=== PATIENT | female | born 1955 | race Caucasian/White ===

== ENCOUNTER 2019-08-22 12:52 | Outpatient (CLI) | payer BC, SELFPAY ==
--- NOTE | ~2019-08-22 | XR_ITS ---
EXAMINATION: 1. XR lg joint inject/asp w image 2. XR lg joint inject/asp add DATE: 08/22/2019 14:18 INDICATION: Posterior right pelvis pain. Piriformis syndrome. TECHNIQUE: A time-out was performed to verify the patient's name, date of , and procedure to b e performed. The procedure including the risks, benefits, and alternatives was discussed with the pat ient. Risks discussed included bleeding and infection. The patient understood the risks and agreed to proceed. The skin overlying the pelvis was prepped and draped in usual sterile fashion. Anesthetic was administered with 1% lidocaine subcutaneously. A 22 G needle was advanced under fluoroscopic gu idance into the right ischial bursa. Subsequently, injectate consisting of 1.5 mL 1% lidocaine and 0. 5 mL 80 mg/mL Depo-Medrol was instilled. A 22 G needle was advanced under fluoroscopic guidance into the right pyriformis muscle. Injection o f 1 mL of Omnipaque 240 confirmed position of the needle. Subsequently, injectate consisting of 1.5 mL 1% lidocaine and 0.5 mL 80 mg/mL Depo-Medrol was instilled. There were no immediate complications . Fluoroscopy exposure time was 0.1 minutes. The total number of images was 2. FINDINGS: Real-time fluoroscopy demonstrates the needle in the right ischial bursa. Fluoroscopy demon strates the needle in the right piriformis muscle. IMPRESSION: 1. Right ischial bursa injection of local anesthetic and steroid. 2. Right piriformis muscle injection of local anesthetic and steroid. Reviewed, dictated and finalized at location A. FISHER IMPRESSION: 1. Right ischial bursa injection of local anesthetic and steroid. 2. Right piriformis muscle injection of local anesthetic and steroid.
== END 2019-08-22 12:53 | disposition home or self-care (01) ==
PROVIDERS: Visit Provider Internal Medicine
DX: G57.01 Lesion of sciatic nerve, right lower limb (principal); M70.71 Other bursitis of hip, right hip
CPT/HCPCS: 20610; 77002; J1040

== ENCOUNTER 2020-06-15 10:29 | Outpatient (CLI) | payer BC, SELFPAY ==
--- NOTE | ~2020-06-15 | MM_ITS ---
EXAMINATION: MM screening alberto BI w mason HISTORY: Screening mammogram TECHNIQUE: Craniocaudal and mediolateral oblique 3-D tomosynthesis images were obtained and synthetic 2-D images were generated. CAD analysis was submitted and interpreted. COMPARISON: 11/10/2017 bilateral digital screening mammogram 10/10/2016 bilateral diagnostic digital mammogram 09/13/2016 bilateral digital screening mammogram BREAST PARENCHYMAL COMPOSITION: FINDINGS: There is a 3 mm circumscribed mass at mid depth in the outer aspect of the mid to lower lef t breast on MLO Tomosynthesis image /. An incompletely circumscribed 3.7 mm mass is suggested in the lower outer quadrant of the left breast on MLO Tomosynthesis image / Otherwise there is no evidence of suspicious mass, calcification, or architectural distortion to sug gest malignancy in either breast. There has been no other suspicious interval change. IMPRESSION: 1. Bilateral masses are suggested; 2. Bilateral diagnostic mammography and ultrasound are recommended. BI-RADS Category 0: Incomplete: Needs additional imaging evaluation. Reviewed, dictated and finalized at location A. HOOKER
== END 2020-06-15 10:30 | disposition home or self-care (01) ==
DX: Z12.31 Encounter for screening mammogram for malignant neoplasm of breast (principal); R92.8 Other abnormal and inconclusive findings on diagnostic imaging of breast
CPT/HCPCS: 77063; 77067

== ENCOUNTER → 2020-07-07 08:24 | Outpatient (CLI) | payer BC, SELFPAY ==
--- NOTE | ~2020-07-07 | MM_ITS ---
EXAMINATION: MM diagnostic mammo BI HISTORY: Bilateral masses suggested on 06/15/2020 screening mammogram TECHNIQUE: Additional 3-D tomosynthesis images of both breasts were performed and synthetic 2-D image s were generated. Bilateral rolled medial and rolled lateral craniocaudal views. CAD analysis was sub mitted and interpreted. COMPARISON: 06/15/2018, 11/10/2017bilateral digital screening mammogram examinations FINDINGS: No reproducible mass, architectural distortion, malignant calcification, skin thickening or retraction or significant new or developing density of either breast since 11/10/2017 is evident. IMPRESSION: 1. No mammographic evidence of malignancy 2. Routine annual mammographic screening is recommended. BI-RADS Category 1: Negative Reviewed, dictated and finalized at location A. ING MACHINE OPERATOR
== END ==
DX: R92.8 Other abnormal and inconclusive findings on diagnostic imaging of breast (principal)
CPT/HCPCS: 77066

== ENCOUNTER 2021-10-27 15:13 | Outpatient (CLI) | payer BC, SELFPAY ==
--- NOTE | ~2021-10-27 | MM_ITS ---
EXAMINATION: MM screening alberto BI w mason HISTORY: Screening TECHNIQUE: Craniocaudal and mediolateral oblique 3-D tomosynthesis images were obtained and synthetic 2-D images were generated. CAD analysis was submitted and interpreted. COMPARISON: Comparison to multiple prior studies sequentially, with oldest reviewed study dated 06/17. BREAST PARENCHYMAL COMPOSITION: Breast composed of scattered areas of fibroglandular density FINDINGS: There is no evidence of suspicious mass, calcification, or architectural distortion to sugg est malignancy in either breast. There has been no suspicious interval change. IMPRESSION: 1. No mammographic evidence of malignancy. 2. Recommend routine screening mammography in one year. BI-RADS Category 1: Negative Reviewed, dictated and finalized at location A.
== END 2021-10-27 15:14 | disposition home or self-care (01) ==
LOC: ANHIMG 15:15
DX: Z12.31 Encounter for screening mammogram for malignant neoplasm of breast (principal)
CPT/HCPCS: 77063; 77067

== ENCOUNTER 2022-11-03 15:48 | Outpatient (CLI) | payer BC, SELFPAY ==
--- NOTE | ~2022-11-03 | MM_ITS ---
EXAMINATION: MM screening alberto BI w mason HISTORY: Screening mammogram TECHNIQUE: Craniocaudal and mediolateral oblique 3-D tomosynthesis images were obtained and synthetic 2-D images were generated. CAD analysis was submitted and interpreted. COMPARISON: October 27, 2021 bilateral screening mammogram, July 07, 2020 bilateral diagnostic mamm ogram, June 15, 2020 bilateral screening mammogram BREAST PARENCHYMAL COMPOSITION: There are scattered areas of fibroglandular density. FINDINGS: There is no evidence of suspicious mass, calcification, or architectural distortion to sugg est malignancy in either breast. There has been no suspicious interval change. IMPRESSION: 1. No mammographic evidence of malignancy. 2. Recommend routine screening mammography in one year. BI-RADS Category 1: Negative Reviewed, dictated and finalized at location B.
== END 2022-11-03 15:49 | disposition home or self-care (01) ==
DX: Z12.31 Encounter for screening mammogram for malignant neoplasm of breast (principal)
CPT/HCPCS: 77063; 77067

== ENCOUNTER → 2023-04-11 14:43 | Outpatient (CLI) | payer BC, SELFPAY ==
--- NOTE | ~2023-04-11 | XR_ITS ---
XR cervical spine 4-5V 04/11/2023 15:13 Indication: Arthritis. Neck pain. Procedure: 5 views cervical spine Comparison: No prior studies for comparison. Findings: Straightening of cervical lordosis. There is degenerative anterolisthesis at C4-5. There is disc narrowing and endplate hypertrophy at C5-6 and C6-7. No prevertebral soft tissue swelling. [place] toid process is normal. Lung apices are normal. Impression: 1: Severe cervical spondylosis with degenerative anterolisthesis at C4-5. Reviewed, dictated and finalized at location B. Impression: 1: Severe cervical spondylosis with degenerative anterolisthesis at C4-5.
== END ==
PROVIDERS: PCP Chiropractor; Visit Provider Chiropractor
DX: M50.30 Other cervical disc degeneration, unspecified cervical region (principal); M47.892 Other spondylosis, cervical region
CPT/HCPCS: 72050

== ENCOUNTER 2023-12-04 09:02 | Outpatient (CLI) | payer BC, SELFPAY ==
--- NOTE | ~2023-12-04 | MR_ITS ---
MRI of the left shoulder Technique: Axial proton-density fat-sat images, coronal proton density fat-sat and T2 fat-sat images, and sagittal T1-weighted and T2 fat-sat images were acquired. Clinical History: Rotator cuff syndrome Findings: There is mild AC joint degenerative change, with bony productive change of the distal clavi shabana. Coracoclavicular, coracoacromial, and coracohumeral ligaments are intact. There is moderate supraspinatus and infraspinatus tendinosis. Possible minimal bursal surface fraying of the distal supraspinatus tendon anteriorly. No high-grade partial or full-thickness tear seen. Calvin bscapularis tendon is intact, with mild tendinosis. Tendon of the long head of the biceps is intact. No labral tear evident. Inferior glenohumeral ligament is intact. No effusion or degenerative change of the glenohumeral join t seen. No fluid distention of the subacromial/subdeltoid bursa. No muscle atrophy or edema. Impression: Rotator cuff tendinosis with possible minimal bursal surface fraying of the distal supraspinatus tend on. No high-grade partial or full-thickness tear seen. Mild AC joint degenerative change. Reviewed, dictated and finalized at location . Impression: Rotator cuff tendinosis with possible minimal bursal surface fraying of the dis alejandro supraspinatus tendon. No high-grade partial or full-thickness tear seen. Mild AC joint degenerative change.
== END 2023-12-04 09:03 ==
LOC: GOSHIMG 09:04
PROVIDERS: PCP Chiropractor; Visit Provider Family Medicine Sports Medicine
DX: M75.22 Bicipital tendinitis, left shoulder (principal); M19.012 Primary osteoarthritis, left shoulder; M25.812 Other specified joint disorders, left shoulder
CPT/HCPCS: 73221

== ENCOUNTER 2024-04-01 07:55 | Outpatient (CLI) | payer BC, SELFPAY ==
--- NOTE | ~2024-04-01 | MM_ITS ---
EXAMINATION: MM screening [facility] BI w mason HISTORY: Screening mammogram TECHNIQUE: Craniocaudal and mediolateral oblique 3-D tomosynthesis images were obtained and synthetic 2-D images were generated. CAD analysis was submitted and interpreted. COMPARISON: 11/03/2022, 10/27/2021, 06/15/2020 BREAST PARENCHYMAL COMPOSITION:Not Dense. There are scattered areas of fibroglandular density. FINDINGS: No suspicious mass, calcification, or architectural distortion are identified in either kadeem ast to suggest malignancy. There has been no suspicious interval change. IMPRESSION: No mammographic evidence of malignancy. Recommend routine screening mammography in one year. BI-RADS Category 1: Negative Reviewed, dictated and finalized at location .
== END 2024-04-01 07:56 | disposition home or self-care (01) ==
LOC: ANHIMG 07:58
DX: Z12.31 Encounter for screening mammogram for malignant neoplasm of breast (principal)
CPT/HCPCS: 77063; 77067

== ENCOUNTER 2025-04-04 09:47 | Outpatient (CLI) | payer BC, SELFPAY ==
--- NOTE | ~2025-04-04 | MM_ITS ---
EXAMINATION: MM screening alberto BI w mason HISTORY: Screening TECHNIQUE: Craniocaudal and mediolateral oblique 3-D tomosynthesis images were obtained and synthetic 2-D images were generated. CAD analysis was submitted and interpreted. COMPARISON: Comparison to multiple prior studies sequentially, with oldest reviewed study dated , 11/10/2017 BREAST PARENCHYMAL COMPOSITION: There are scattered areas of fibroglandular density. FINDINGS: There is no evidence of suspicious mass, calcification, or architectural distortion to suggest malignancy in either breast. IMPRESSION: 1. No mammographic evidence of malignancy. 2. Recommend routine screening mammography in one year. BI-RADS Category 1: Negative Reviewed, dictated and finalized at location B.
--- OUTSIDE RECORDS SUMMARY | 2025-04-04 09:54 | XMS_ITS | Encounter Summary ---
Author Organization [facility] Address [address] [facility] [place] [address] Care Team Providers Care Forming Machine Operator Name Role Phone Paola Valdez DO Primary Care Provider [phone] Reason for Visit * Reason Onset Date Comments MEDICATION REFILL 02/26/2024 Encounter Details Date Type Department Care Team (Late st Contact Info) Description 02/26/2024 Refill [facility] - Internal Med [address] [place] [address], [place] [address] Paola Valdez DO [address] [place] [address] [place] [address] MEDICATION REFILL Social History Tobacco Use Types Packs/Day Years Used Date Smoking Tobacco: Never Passive Smoke Exposure: Never Smokeless Tobacco: Never Alcohol Use Standard Drinks/Week Comments Yes 0 (1 standard drink = 0.6 oz pur e alcohol) 2 drink a month AUDIT-C Answer Date Recorded Q1: How often do you have a drink containing alc ohol? Monthly or less 02/09/2022 Q2: How many drinks containi ng alcohol do you have on a typical day when you are drinking? 1 or 2 02/09/2022 Q3: How often do you have si x or more drinks on one occasion? Never 02/09/2022 PHQ-2 Answer Date Recorded Patient Health Questionnaire-2 Score 0 12/12/2023 Comments No Sex and Gender Information Value Date Recorded Sex Assigned at Female 11/11/2024 11:33 AM CDT Legal Sex Female 5:21 PM MANAGER GENERATION Gender Identity Not on file Sexual Orientation Not on file documented as of this encounter Functional Status * Is person deaf or have serious hearing difficulty? Answer Date of Assessment Author No 02/09/2022 11:03 AM Destiny Pham RN * Is person blind or have serious difficulty seeing? Answer Date of Assessment Author No 02/09/2022 11:03 AM BELINDAT Destiny Overton RN * Does person have serious difficulty walking/climbing stairs? Answer Date of Assessment Author No 02/09/2022 11:03 AM BELINDAT Destiny Overton RN * Does person have difficulty dressing/bathing? Answer Date of Assessment Author No 02/09/2022 11:03 AM Destiny Pham RN * Does person have difficulty doing errands alone? Answer Date of Assessment Author No 02/09/2022 11:03 AM Destiny Pham RN documented as of this encounter Mental Status * Does person have difficulty concentrating/remembering/making decisions? Answer Entry Date Author No 02/09/2022 11:03 AM Destiny Pham RN documented in this encounter Plan of Treatment Upcoming Encounters Date Type Department Care Team (Late st Contact Info) Description 05/05/2025 8:30 AM CDT Office Visit [facility] - Internal Med [address] [place] [phone] Paola Valdez DO [address] [place] [address] OF [facility] [place] [address] 11/18/2025 1:00 PM CDT Office Visit [facility] - Dermatology [address] [place] [address] [place] [address] Ashanti Fernandez MD [address] [place], [place] [address]T [place] [address] documented as of this encounter Goals Goal Patient Goal Type Associated Problems Recent Progress Patient-Stated? Author Medication Management General On track( 025 2:32 PM CDT) No Anny Meraz RN Note: Expected end date: on-going Interventions: Take all medications as prescribed Let your doctor know right away about any changes in your medications Make sure to request a refill of your medication at least one week prior to your last dose documented as of this encounter Visit Diagnoses Diagnosis Generalized anxiety disorder documented in this encounter Care Teams Forming Machine Operator Relationship Specialty Start Date End Date Paola Valdez DO [address] [place] [address] PCP - General Internal Medicine 04/24/23 documented as of this encounter
--- OUTSIDE RECORDS SUMMARY | 2025-04-04 09:54 | XMS_ITS | Encounter Summary ---
Author Organization [facility] Address [address] [facility] [place] [address] Care Team Providers Care Electric Motor Control Assembler Name Role Phone José Miguel Paola Primary Care Provider [phone] Reason for Visit * Reason Onset Date Comments MEDICATION REFILL 05/29/2023 Encounter Details Date Type Department Care Team (Late st Contact Info) Description 05/29/2023 Refill [facility] - Internal Med [address] [facility], [facility] [place] [phone] Arnel Booth MD [address] [place] [address] MEDICATION REFILL Social History Tobacco Use Types Packs/Day Years Used Date Smoking Tobacco: Never Smokeless Tobacco: Never Alcohol Use Standard [...] Date Recorded Patient Health Questionnaire-2 Score 0 04/24/2023 Comments No Sex and Gender Information Value Date Recorded Sex Assigned at Female 11/11/2024 11:33 AM CDT Legal Sex Female 5:21 PM KICK PRESS OPERATOR Gender Identity Not on file Sexual Orientation Not on file documented as of this encounter Functional Status * Is person deaf or have serious hearing difficulty? Answer Date of Assessment Author No 02/09/2022 11:03 AM Destiny Pham RN * Is person blind or have serious difficulty seeing? Answer Date of Assessment Author No 02/09/2022 11:03 AM Destiny Pham RN * Does person have serious difficulty walking/climbing stairs? Answer Date of Assessment Author No 02/09/2022 11:03 AM Destiny Pham RN * Does person have difficulty dressing/bathing? [...] Destiny Pham RN documented in this encounter Miscellaneous Notes * Telephone Encounter - Nisa Lewis LPN - 05/30/2023 7:21 AM KICK PRESS OPERATOR Refill Request Colette Garcia Recent Visits Date Type Provider Dept 04/24/23 Office Visit Paola Valdez DO [facility] 2l 11/07/22 Office Visit Rivera Rand MD [facility] 2[facility] 07/20/22 Office Visit Rivera Rand MD [facility] 2[facility] 05/11/22 Office Visit Lolis Colbert APRN-CNP [facility] 2[facility] 01/31/22 Office Visit Rivera Rand MD [facility] 2[facility] Showing recent visits within past 540 days with a meds authorizing provider and meeting all other requirements Future Appointments No visits were found meeting these conditions. Showing future appointments within next 150 days with a meds authorizing provider and meeting all other requirements Last Refill: 01.19.23 Allergies: Allergies Allergen Reactions ??? Sulfa Drugs Rash After 7-8 days developed generalized erythematous rash on torso and thighs. No shortness of breath ??? Meloxicam Rash, Other and Skin Reactions Fixed drug eruption. A couple of days after ingestion, developed itchy red bumps. Lesions resolve and re-occur at the exact same place when taken again. No shortness of breath. Tolerates Ibuprofen / Aleeve. , Pended Medication Order: Requested Prescriptions Pending Prescriptions Disp Refills ??? LORazepam (Ativan) 0.5 MG tablet 40 tablet 0 Sig: Take 1 (one) tablet by mouth every 12 hours as needed for Anxiety or Insomnia PRESS OPERATOR documented in this encounter Plan of Treatment Upcoming Encounters Date Type Department Care Team (Late st Contact Info) Description 05/05/2025 8:30 AM CDT Office Visit [facility] - Internal Med [address] [place] [phone] Paola Valdez DO [address] [place] [address] [address] [place] [address] 11/18/2025 1:00 PM CDT Office Visit [facility] - Dermatology [address] [place] [phone] Ashanti Fernandez MD [address] [place], [place] [address] [address] documented as of this encounter Goals Goal Patient Goal Type Associated Problems Recent Progress Patient-Stated? Author Medication Management General On track( 025 2:32 PM CDT) No Anny Meraz, RN Note: Expected end date: on-going Interventions: Take all medications as prescribed Let your doctor know right away about any changes in your medications Make sure to request a refill of your medication at least one week prior to your last dose documented as of this encounter Visit Diagnoses Diagnosis Anxiety disorder, unspecified type documented in this encounter Care Teams Electric Motor Control Assembler Relationship Specialty Start Date End Date Paola Valdez DO [address] [place] [address] [address] [place] [address] PCP - General Internal Medicine 04/24/23 documented as of this encounter
--- OUTSIDE RECORDS SUMMARY | 2025-04-04 09:54 | XMS_ITS | Encounter Summary ---
Author Organization [facility] Address [address] [facility] [place] [address] Care Team Providers Care Sanitary Engineer Name Role Phone José Miguel Paola Primary Care Provider [phone] Reason for Visit * Reason Onset Date Comments MEDICATION REFILL 11/18/2023 Encounter Details Date Type Department Care Team (Late st Contact Info) Description 11/18/2023 Refill [facility] - Internal Med [address] [facility], [place] [phone] Rivera Rand MD [address] [place] [address] MEDICATION REFILL Social History Tobacco Use Types [...] AM CDT Legal Sex Female 5:21 PM SEAFOOD PREPARER Gender Identity Not on file Sexual Orientation Not on file documented as of this encounter Functional Status * Is person deaf or have serious hearing difficulty? Answer Date of Assessment Author No 02/09/2022 11:03 AM BELINDAT Destiny Overton RN * Is person blind or have [...] Overton RN * Does person have difficulty doing errands alone? Answer Date of Assessment Author No 02/09/2022 11:03 AM Destiny Pham RN documented as of this encounter Mental Status * Does person have difficulty concentrating/remembering/making decisions? Answer Entry Date Author No 02/09/2022 11:03 AM Destiny Pham RN documented in this encounter Miscellaneous Notes * Telephone Encounter - Nisa Lewis LPN - 11/20/2023 12:57 PM CDT Refill Request Colette Garcia Recent Visits Date Type Provider Dept 04/24/23 Office Visit Paola Valdez DO [facility] 2[facility] 11/07/22 Office Visit Rivera Rand MD [facility] 2l 07/20/22 Office Visit Rivera Rand MD [facility] 2l Showing recent visits within past 540 days with a meds authorizing provider and meeting all other requirements Future Appointments Date Type Provider Dept 12/18/23 Appointment Paola Valdez DO [facility] 2l Showing future appointments within next 150 days with a meds authorizing provider and meeting all other requirements Last Refill: 10.28.22 Allergies: Allergies Allergen Reactions ??? Sulfa Drugs [...] Requested Prescriptions Pending Prescriptions Disp Refills ??? sertraline (Zoloft) 50 MG tablet 90 tablet 4 Sig: Take 1 (one) tablet by mouth once daily documented in this encounter Plan of Treatment Upcoming Encounters Date Type Department Care Team (Late st Contact Info) Description 05/05/2025 8:30 AM CDT Office Visit [facility] - Internal Med [address] [place] [address], [place] [address] Paola Valdez DO [address] [place] [address] [address] [place] [address] 11/18/2025 1:00 PM CDT Office Visit [facility] - Dermatology [address] [place] [address], [place] [address] Ashanti Fernandez MD [address] [place] [address] [place] [address] documented as of this encounter Goals Goal [...] disorder documented in this encounter Care Teams Sanitary Engineer Relationship Specialty Start Date End Date Paola Valdez DO [address] [place] [address] [address] [place] [address] PCP - General Internal Medicine 04/24/23 documented as of this encounter
--- OUTSIDE RECORDS SUMMARY | 2025-04-04 09:54 | XMS_ITS | Encounter Summary ---
Author Organization [facility] Address [address] [facility] [place] [address] Care Team Providers Care Accordion Repairer Name Role Phone Abby Robledo MD Primary Care Provider Tray Atkinson MD Primary Care Provider [phone] Rivera Rand MD Unavailable Paola Valdez DO Primary Care Provider [phone] Reason for Visit * Reason Onset Date Comments MEDICATION REFILL 05/31/2018 Encounter Details Date Type Department Care Team (Late st Contact Info) Description 05/31/2018 Refill [facility] [address] [place] [address] Kasia Lima MD [address] [place], [place] [id number] MEDICATION REFILL Social History Tobacco Use Types Packs/Day Years Used Date Smoking Tobacco: Never Smokeless Tobacco: Never Alcohol Use Standard Drinks/Week Comments Yes 0 (1 standard drink = 0.6 oz pur e alcohol) 2 drink a month Comments No Sex and Gender Information Value Date Recorded Sex Assigned at Female 11/11/2024 11:33 AM CDT Legal Sex Female 5:21 PM TRANSPORT AIDE Gender Identity Not on file Sexual Orientation Not on file documented as of this encounter Miscellaneous Notes * Telephone Encounter - Abby Robledo MD - 06/01/2018 8:24 AM TRANSPORT AIDE Former patient of Dr. Lima; scheduled to see me in August. Will refill chronic medications until my visit. SPORT AIDE * Telephone Encounter - Saige Ambrosio - 05/31/2018 2:09 PM CST Refill request sent per protocol to provider ELVIS 02-05-18 NOV 08-27-17 SPORT AIDE documented in this encounter Plan of Treatment Upcoming Encounters Date Type Department Care Team (Late st Contact Info) Description 05/05/2025 8:30 AM CDT Office Visit [facility] - Internal Med [address] [place] [phone] Paola Valdez DO [address] [place] [address] OF [facility] [place] [place] [address] 11/18/2025 1:00 PM CDT Office Visit [facility] - Dermatology [address] [place] [address] [place] [phone] Ashanti Fernandez MD [address] [place], [place] [address]T [place] [phone] documented as of this encounter Visit Diagnoses Not on filedocumented in this encounter Additional Health Concerns Infection Onset Date Last Indicated Resolved Time COVID-19 Under Investigation 03/31/2021 03/31/2021 04/01/2021 10:07 PM CDT documented as of this encounter Care Teams Accordion Repairer Relationship Specialty Start Date End Date Abby Robledo MD PCP - General 02/05/18 09/26/19 Tray Atkinson MD PCP - General 09/27/19 04/23/23 Paola Valdez DO [address] OF [facility] [place] [address] PCP - General Internal Medicine 04/24/23 Rivera Rand MD Resident - PCP Internal Medicine 05/17/22 04/23/23 documented as of this encounter
--- OUTSIDE RECORDS SUMMARY | 2025-04-04 09:54 | XMS_ITS | Clinical Summary ---
Author Organization [facility] [address] [place] Address [address] [place] [address] Care Team Providers Care Shared Services Manager Name Role Phone RugbyPaola murillo Primary Care Provider JuanFreya sethjael LAO Unavailable [phone] Allergies Active Allergy Reactions Criticality Noted Date Comments Meloxicam Hives,Other (See comments),Rash High 03/01/2016 Fixed drug eruption. A couple of days after ingestion, developed itchy red bumps. Lesions resolve and re-occur at the exact same place when taken again. No shortness of breath. Tolerates Ibuprofen / Aleeve. , Fixed drug eruption. A couple of days after ingestion, developed itchy red bumps. Lesions resolve and re-occur at the exact same place when taken again. No shortness of breath. Tolerates Ibuprofen / Aleeve. , Fixed drug eruption. A couple of days after ingestion, developed itchy red bumps. Lesions resolve and re-occur at the exact same place when taken again. No shortness of breath. Tolerates Ibuprofen / Aleeve. , Sulfa (Sulfonamide Antibiotics) Rash Medium 02/14/2008 After 7-8 days developed generalized erythematous rash on torso and thighs. No shortness of breath, After 7-8 days developed generalized erythematous rash on torso and thighs. No shortness of breath Medications cholecalciferol (VITAMIN D-3) 2000 unit tabletIndicatio ns:Vitamin D Deficiency Take 1 tablet (2,000 Units total) by mouth every morning Active LORazepam (ATIVAN) 0.5 mg tablet Take 1 tablet (0.5 mg total) by mouth as needed for anxiety (sleep) 0 9 Active omeprazole (PriLOSEC) 20 mg capsuleIndicati ons:gerd Take 1 capsule (20 mg total) by mouth every morning Active lisinopriL (PRINIVIL,ZESTR IL) 10 mg tabletIndicatio ns:hypertension Take 1 tablet (10 mg total) by mouth every morning 0 Active cycloSPORINE (Restasis) 0.05 % ophthalmic emulsion Administer 1 drop into both eyes 2 (two) times a day 9 Active glucosamine-cho ndroitin 500-400 mg capsule Take 1 tablet by mouth daily Active multivit,iron,m inerals/lutein (CENTRUM SILVER ULTRA WOMEN'S ORAL) Take by mouth daily Active Active Problems Problem Noted Date Diagnosed Date Traumatic incomplete tear of left rotator cuff 1 07/23/2023 Biceps tendonitis on left 05/17/2024 Impingement syndrome of left shoulder 05/17/2024 Arthritis of left acromioclavicular joint 2023 Seborrheic dermatitis 12/17/2020 Hip abductor tendinitis, right 01/01/2020 Overview (02/07/2024): Added automatically from request for surgery [id number] Hip pain, chronic, right 01/01/2020 Chronic pain of both knees 04/10/2019 Low immunoglobulin level 04/10/2019 Primary osteoarthritis of both knees 04/10/2019 Hypogammaglobulinemia 03/22/2018 Sjogren's syndrome with keratoconjunctivitis sic ca 09/25/2017 ITA positive 03/13/2017 Rheumatoid factor positive 03/13/2017 SS-A antibody positive 03/13/2017 Essential hypertension 07/06/2015 Gastroesophageal reflux disease without esophagi tis 07/06/2015 Presbyopia 02/23/2015 History of basal cell cancer 10/11/2013 Generalized anxiety disorder 07/25/2011 Non-allergic rhinitis 07/25/2011 Resolved Problems Problem Noted Date Diagnosed Date Resolved Date Healthcare maintenance 01/01/202005/04 Other specified abnormal imm unological findings in serum 03/13/2017 05/04/2023 Immunizations Immunization Administration Dates Next Due Influenza, Quadrivalent, Hig h Dose, Preservative Free, Intrr 05/03/2022,04/27/2021 Influenza, Quadrivalent, Spl it, Preservative Free, Intramuscular 04/28/2020,04/16/2019,04/02/2018 Influenza, Trivalent, High D ose, Split, Preservative Free, Intramuscular 05/07/2024 Influenza, Trivalent, IM (MDV) 7,03/17/2015,04/02/2014,04/16 Influenza, Trivalent, Preser vative Free, Intramuscular 03/15/2016,04/21/2015 Influenza, Unspecified 04/28/2020,04/25/2017 Pfizer SARS-CoV-2 Monovalent Vaccination (12+ Yrs) PURPLE 09/19/2020,08/21/2020 Pneumococcal Polysaccharide PPV23 12/21/2020 Tdap 12/06/2018,12/29/2008 ZOSTER LIVE 04/25/2017 ZOSTER Recombinant 07/24/2019,04/16/2019 Surgical History Surgery Date Site/Laterality Comments CHOLECYSTECTOMY ESOPHAGOGASTRODUODENOSCOPY COLONOSCOPY Medical History Medical History Date Comments Malignant neoplasm of skin Cance r, skin Hypertension Anxiety Migraines Low immunoglobulin level 04/10/2019 Sjogren's syndrome GERD (gastroesophageal reflux disease) Osteoarthritis Tendinitis Motion sickness only if reading in car Basal cell carcinoma Obesity Autoimmune disease Sjogren's syndrome Family History Medical History Relation Name Comments Cancer Father Leoncio Hearing loss Father Leoncio Heart disease Father Leoncio Hypertension Father Leoncio Stroke Father Leoncio Vision loss Father Leoncio Stroke Maternal Grandmother jordi Depression Mother Ana Osteoarthritis Mother Ana Osteoporosis Mother Ana Heart disease Other 1 Family history of Heart problems; Hypertension Other 2 Family history of Hypertension; Stroke Paternal Grandmother sourav Anesthesia problems Neg Hx Relation Name Status Comments Father Leoncio Maternal Grandmother jordi Mother Ana Alive Other 1 Other 2 Paternal Grandmother sourav Social History Tobacco Use Types Packs/Day Years Used Date Smoking Tobacco: Never Smokeless Tobacco: Never Tobacco Cessation:Counseling Given: Not Answered Alcohol Use Standard Drinks/Week Comments Yes 0 (1 standard drink = 0.6 oz pur e alcohol) 4 drinks per month AUDIT-C Answer Date Recorded Q1: How often do you have a drink containing alcohol? Never 06/04/2024 Q2: How many drinks containi ng alcohol do you have on a typical day when you are drinking? Patient does not drink Q3: How often do you have si x or more drinks on one occasion? Never 06/04/2024 Personal Safety Answer Date Recorded Have you ever been in or are you currently in a harmful physical or emotional relationship or is someone making you feel afraid or unsafe? 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 Gender Identity Female 08/19/2020 9:31 AM CONDENSER TESTER Sexual Orientation Not on file Occupation Industry Job Start Date Job End Date Retired Not on file Not on file Not on file Obstetrics History Last Filed Vital Signs Vital Sign Reading Time Taken Comments Blood Pressure 130/74 10/24/2024 9:40 AM CDT Pulse 68 10/24/2024 9:40 AM CDT Temperature 36.9 C (98.4 F) 10/24/2024 9:40 AM CDT Respiratory Rate 20 10/24/2024 9:40 AM CDT Oxygen Saturation 97% 10/24/2024 9:40 AM CDT Inhaled Oxygen Concentration - - Weight 74.4 kg (164 lb) 10/24/2024 9:40 AM CDT Height 165.1 cm (5' 5) 09/24/2024 8:02 AM CDT Body Mass Index 27.29 09/24/2024 8:02 AM CDT Plan of Treatment Health Maintenance Due Date Last Done Comments Breast Cancer Screening-Mammogram 1955 Colon Cancer Screening-Colonoscopy 1955 Depression Screening 1955 Hepatitis C Screening 1955 Well Visit 65+ 2020 Pneumococcal vaccine 65+ (2 of 2 - PCV) 12/21/2021 12/21/2020 Osteoporosis Screening-Bone Density Scan 01/01/2023 01/01/2021, 01/01/2021 Covid-19 Vaccine (3 - 2024-2 6 season) 2025 09/19/2020, 08/21/2020 Influenza Vaccine (#1) 2025 4, 05/03/2022, 04/27/2021, Additional history exists Fall Risk Assessment 05/23/2025 05/23/2024 DTaP/Tdap/Td Vaccine (3 - Td or Tdap) 12/06/2028 12/06/2018, 12/29/2008 Zoster Vaccine Completed 07/24/2019, 07/2018, 04/25/2017 Hepatitis B Screening Completed 06/15/2023 , 01/05/2023, 12/01/2022 Medical Devices Implanted Type Area Exterminator Termite Device Identifier Shelf Expiration Date Model / Serial / Lot [employer] [id number] Corkscrew Ii Fiberwire 5.5mm 16.3mm 2 2 Full Thread Cocoa Suture - [id number] Implanted:Qty: 1 on 07/14/2020 by Boris aLura MD at [facility] Right: Hip [employer] 12/14/2024 [id number] / / [id number] [employer] [id number] Corkscrew Ii Fiberwire 5.5mm 16.3mm 2 2 Full Thread Cocoa Suture - [id number] Implanted:Qty: 1 on 07/14/2020 by Boris Laura MD at [facility] Right: Hip [employer] 12/14/2024 [id number] / / [id number] [employer] Regenerate Tendon Cocoa Suture 2504-1 - [id number] Implanted:Qty: 1 on 05/23/2024 by Isidro Packer MD at [facility] Left: Shoulder [employer] 02/21/2026 2504-1 / / [id number] [employer] Endoscopy Implant Medium Arthroscopic Bioinductive W/ Delivery Device 4565 - [id number] Implanted:Qty: 1 on 05/23/2024 by Isidro Packer MD at [facility] Left: Shoulder [employer] Endoscopy 03/11/2026 [id number] / / [id number] [employer] Endoscopy Cocoa Bone Arthroscopic Delivery System Sterile 4403 - [id number] Implanted:Qty: 1 on 05/23/2024 by Isidro Packer MD at [facility] Left: Shoulder [employer] Endoscopy 05/08/2026 [id number] / / [id number] Insurance MEDICARE [facility] Address: [address] [address] [place] [address] [email or web address] [facility] Advance Directives For more information, please contact: [phone] * Full Code (Latest Code Status on File) Date Activated Date Inactivated Comments 07/14/2020 12:32 PM 07/15/2020 4:25 PM Care Teams Shared Services Manager Relationship Specialty Start Date End Date Paola Valdez DO [address] [place] [address] PCP - General Internal Medicine 05/07/24 Freya Martinez PA [address] [place] [address] [address], [place] [address] Physician Policy Issue Clerk Orthopedic Surgery 05/23/24
--- OUTSIDE RECORDS SUMMARY | 2025-04-04 09:54 | XMS_ITS | Clinical Summary ---
Author Organization [facility] Address [address] [place] [address] Care Team Providers Care Inspector Subassemblies Name Role Phone José MiguelPaola Primary Care Provider [phone] Source Comments [facility],non-owned Affiliates and Associated Physician Practices is amultiple site organization consisting of ambulatory clinics and hospital sitesin [place], [place], [place] and [place]. This disclosure is being madepursuant to the Care Everywhere program and may not contain all information available regarding this patient. Last updated 18.[facility] Allergies Active Allergy Reactions Criticality Noted Date Comments Meloxicam Rash,Other,Skin Reactions Medium 03/01/2016 Fixed drug eruption. A couple of days after ingestion, developed itchy red bumps. Lesions resolve and re-occur at the exact same place when taken again. No shortness of breath. Tolerates Ibuprofen / Aleeve. , Sulfa Drugs Rash Medium 02/14/2008 After 7-8 days developed generalized erythematous rash on torso and thighs. No shortness of breath Medications * Be aware that medications may not be up to date on this document. Alwaysverify current medications with the patient. Cholecalciferol (VITAMIN D-3) 1000 UNITS Take 2 (two) capsules by mouth once daily Active glucosamine-cally droitin 500-400 MG capsule Take 1 (one) capsule by mouth once daily Active hydrocortisone (Hytone) 2.5 % cream Apply to affected area 4 times daily Active Multiple Vitamins-Mineral s (Centrum Silver 50+Women) TABS Take 1 tablet by mouth once daily 07/17/19 24 Active Ascorbic Acid (VITAMIN C GUMMIE PO) Take 2 tablets by mouth once daily 250 mg 2 gummies a day 07/17/19 24 Active melatonin 3 MG tablet Take 1 (one) tablet by mouth at bedtime 09/25/19 25 Active Additional Information Patient not taking.Reason: Patient adjusted, Reported on 02/14/2025 MAGNESIUM PO Active Multiple Vitamins-Mineral s (CENTRUM WOMEN PO) Take by mouth once daily Active ondansetron (Zofran) 4 MG tablet 05/23/20 24 Active cycloSPORINE (Restasis) 0.05 % ophthalmic suspension Instill 1 (one) drop into both eyes 2 times daily as needed Active Restasis 0.05 % ophthalmic suspension Instill 1 (one) drop into both eyes 2 times daily 5.5 mL 10/17/19 25 Active Additional Information Patient not taking.Reason: Patient adjusted, Reported on 02/14/2025 lisinopril (Prinivil; Zestril) 10 MG tabletIndication s:Essential hypertension Take 1 (one) tablet by mouth once daily Take with 5mg for total of 15mg once daily. 30 tablet 1 11/12/19 25 Active lisinopril (Prinivil; Zestril) 5 MG tabletIndication s:Essential hypertension Take 1 (one) tablet by mouth once daily Take with 10mg for total of 15mg once daily. 30 tablet 1 11/12/19 25 Active Additional Information Patient not taking.Reason: Patient adjusted, Reported on 02/14/2025 tacrolimus (Protopic) 0.1 % ointmentIndicati ons:Other eczema Apply to affected area in groin two times daily. 30 days supply. 30 g 4 11/14/19 25 Active omeprazole (PriLOSEC) 20 MG capsule Take 1 (one) capsule by mouth once daily 90 capsule 1 12/17/19 25 Active LORazepam (Ativan) 0.5 MG tabletIndication s:Anxiety disorder, unspecified type Take 0.5 (one-half) tablet to 1 (one) tablet by mouth every 12 hours as needed for Anxiety or Insomnia 30 tablet 01/29/20 25 Active sertraline (Zoloft) 25 MG tablet Take 1 (one) tablet by mouth once daily 90 tablet 1 03/10/20 25 Active sertraline (Zoloft) 25 MG tablet Take 1 (one) tablet by mouth once daily 09/25/19 025 Discontin ued(Reord er) Active Problems Problem Noted Date Diagnosed Date Seborrheic dermatitis 12/17/2020 Healthcare maintenance 01/01/2020 Hip abductor tendinitis, right 01/01/2020 Primary osteoarthritis of both knees 04/10/2019 Low immunoglobulin level 04/10/2019 Chronic pain of both knees 04/10/2019 Hypogammaglobulinemia 03/22/2018 Sjogren's syndrome with keratoconjunctivitis sic ca 09/25/2017 Other specified abnormal immunological findings in serum 03/13/2017 ITA positive 03/13/2017 Rheumatoid factor positive 03/13/2017 SS-A antibody positive 03/13/2017 Essential hypertension 07/06/2015 Gastroesophageal reflux disease without esophagi tis 07/06/2015 Presbyopia 02/23/2015 History of basal cell cancer 10/11/2013 Generalized anxiety disorder 07/25/2011 Non-allergic rhinitis 07/25/2011 Resolved Problems Problem Noted Date Diagnosed Date Resolved Date Drug reaction 03/22/2018 09/27/2019 Encounters Date Type Department Care Team Description 02/14/2025 1:15 PM CDT Office Visit [facility] - E[facility] [address] [place] [phone] Jacky Marie MD Neck pain (Primary Dx) 02/14/2025 12:38 PM CDT - 02/14/2025 11:59 PM CDT Hospital Encounter [facility] [address] [place] [address] Jacky Marie MD Discharge Disposition: Home or Self Care 02/14/2025 Travel 01/29/2025 2:00 PM CDT Office Visit [facility] [address] [place] [phone] Ashanti Fernandez MD Walker, Ronald J, MD Neck mass (Primary Dx); Neoplasm of uncertain behavior 01/29/2025 Travel 01/27/2025 12:50 PM CDT [facility] [address] [place] [phone] Ashanti Fernandez MD Neoplasm of uncertain behavior (Primary Dx); 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 (AF LURIA, FLUZONE TRIVALENT; 6MO+) (IIV3) 04/26/2017,03/17/2015,04/02/2014,2012 COVID PFIZER 12+YR 30MCG/0.3mL 07/16/2024 COVID PFIZER BIVALENT 12Y+ 30mcg/0.3ML 09/09/2022 Covid Pfizer primary monoval ent 12+ yr 0.3mL Purple cap 05/17/2021,09/19/2020,08/21/2020 FLU VACCINE TRI IIV3 SPLIT P F IM (FLUVIRIN) 03/15/2016,04/21/2015 HEP A VACCINE, ADULT 06/15/2023 HEP A/HEP B 06/15/2023,01/05/2023,12/01/2022 HEP B VACCINE, ADULT 3 DOSE 06/15/2023 INFLUENZA VACCINE 05/03/2022,,04/28/2020,2016 INFLUENZA VACCINE, ADJUVANTE D, QUADR. (FLUAD QUADRIVALENT; 65Y+) (AIIV4) 04/24/2023 INFLUENZA VACCINE, CELL CULT URE, QUADR. (FLUCELVAX QUADRIVALENT; 6MO+) (CCIIV4) 04/25/2017 INFLUENZA VACCINE, HIGH-DOSE , TRIV. (FLUZONE HIGH-DOSE TRIVALENT; 65Y+) (HD-IIV3) 05/07/2024 INFLUENZA VACCINE, QUADR. (F LUZONE; FLULAVAL; FLUARIX; AFLURIA QUADRIVALENT; 6MO+), 0.5 ML (IIV4) 04/28/2020,04/16/2019,04/02/2018 PNEUMOCOCCAL PPSV23 12/21/2020 TDAP (7yrs+) 12/06/2018,12/29/2008 ZOSTER VACCINE, LIVE 04/26/2017 Zoster Hzv Vacc Recombinant Inj Im 07/24/2019, Family History Medical History Relation Name Comments Blindness Father Cancer - Liver Father Cataract Father Status: Alive Hypertension Father CVA Maternal Grandmother Hypertension Maternal Grandmother Depression Mother Status: Alive Hypertension Paternal Grandfather CVA Paternal Grandmother Diabetes Paternal Grandmother Glaucoma Paternal Grandmother Hypertension Paternal Grandmother Amblyopia Neg Hx Asthma Neg Hx Cancer Neg Hx Cancer - Breast Neg Hx Cancer - Other Neg Hx Cancer - Skin, Melanoma Neg Hx Cancer - Skin, Non Melanoma Neg Hx Eczema Neg Hx Hemophilia Neg Hx Macular Degeneration Neg Hx Psoriasis Neg Hx Retinal Detachment Neg Hx Strabismus Neg Hx Thyroid Disease Neg Hx Relation Name Status Comments Father Maternal Grandmother Mother Alive Paternal Grandfather Paternal Grandmother Social History Tobacco Use Types Packs/Day Years Used Date Smoking Tobacco: Never Passive Smoke Exposure: Never Smokeless Tobacco: Never Tobacco Cessation:Counseling Given: Not Answered Alcohol Use Standard Drinks/Week Comments Yes 0 (1 standard drink = 0.6 oz pur e alcohol) rarely AUDIT-C Answer Date Recorded Q1: How often [...] Date Recorded Patient Health Questionnaire-2 Score 0 11/04/2024 Comments No Sex and Gender Information Value Date Recorded Sex Assigned at Female 11/11/2024 11:33 AM CDT Legal 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 Gender Identity Not on file Sexual Orientation Not on file Last Filed Vital Signs Vital Sign Reading Time Taken Comments Blood Pressure 173/91 02/14/2025 1:06 PM CDT Pulse 68 02/14/2025 1:06 PM CDT Temperature 36.2 C (97.1 F) 11/11/2024 9:00 AM CDT Respiratory Rate 14 02/09/2022 11:15 AM CDT Oxygen Saturation 99% 11/11/2024 9:00 AM CDT Inhaled Oxygen Concentration - - Weight 75 kg (165 lb 6.4 oz) 02/14/2025 1:06 PM CDT Height 166.4 cm (5' 5.5) 02/14/2025 1:06 PM CDT Body Mass Index 27.11 02/14/2025 1:06 PM CDT Plan of Treatment Upcoming Encounters Date Type Department Care Team (Late st Contact Info) Description 05/05/2025 8:30 AM CDT [facility] Visit [facility] [address] [place] [address], [place] [phone] Paola Valdez DO [address] [place] [address] DIV OF [facility] [place] [address] 11/18/2025 1:00 PM CDT Office Visit [facility] - Dermatology [address] [place] [address], [place] [phone] Ashanti Fernandez MD [address] [place], [place] [address] [phone] Health Maintenance Due Date Last Done Comments COLOGUARD (AGES 45-75) - COLON CA SCREENING [address] COLONOGRAPHY - COLON CA SCREENING 1955 FIT - COLON CA SCREENING 1955 FLEX SIG - COLON CA SCREENING 1955 PNEUMOCOCCAL VACCINE 50+ (2 of 2 - PCV) 12/21/2021 12/21/2020 COVID-19 VACCINE ( season) 2025 07/16/2024, 09/09/2022, 05/17/2021, Additional history exists INFLUENZA VACCINE (#1) 2025 4, 04/24/2023, 05/03/2022, Additional history exists MAMMOGRAM 04/01/2026 04/01/2024 (Done Outside Per Report), 11/03/2022, 07/07/2020, Additional history exists COLONOSCOPY - COLON CA SCREENING 05/31/2027 05/31/2017 Colorectal Cancer Screening 05/31/2027 SCREENING FOR DIABETES 10/23/2027 5, 11/14/2023, 09/21/2022, Additional history exists DTAP/TDAP/TD VACCINES (3 - Td or Tdap) 12/06/2028 12/06/2018, 12/29/2008 LIPID TESTING 05/15/2029 05/15/2024, 10/17, 08/15/2022, Additional history exists Respiratory Syncytial Virus (RSV) Vaccine Pt: or over 60 yrs (1 - 1-dose 75+ series) 2030 HEPATITIS C SCREENING Completed 03/08/2017 ZOSTER VACCINE Completed 07/24/2019, 07/2018, 04/26/2017 BONE DENSITY TESTING Completed 01/01/2021 HEPATITIS A VACCINE Completed 06/15/2023, 06/15/2023, 01/05/2023, Additional history exists HEPATITIS B VACCINE Completed 06/15/2023, 06/15/2023, 01/05/2023, Additional history exists DEPRESSION SCREENING Completed 09/24/2024, 12/18/2023, 07/20/2022, Additional history exists HIB VACCINE Aged Out No longer eligi ble based on patient's age to complete this topic HPV VACCINE Aged Out No longer eligi ble based on patient's age to complete this topic MENINGOCOCCAL (Group B) VACCINE SHARED DECISION-MAKING Aged Out No longer eligible based on patient's age to complete this topic MENINGOCOCCAL GROUPS A/C/Y/W VACCINE Aged Out No longer eligible based on patient's age to complete this topic Goals Goal Patient Goal Type Associated Problems Recent Progress Patient-Stated? Author Medication Management General On track( 025 2:32 PM CDT) Anny London RN Note: Expected end date: on-going Interventions: Take all medications as prescribed Let your doctor know right away about any changes in your medications Make sure to request a refill of your medication at least one week prior to your last dose Procedures Procedure Name Priority Date/Time Associated Diagnosis Comments CT NECK SOFT TISSUE W CONT Routine 02/14/2025 12:56 PM CDT Neoplasm of uncertain behavior ISTAT CREATININE Routine 02/14/2025 12:4 8 PM CDT COMPREHENSIVE METABOLIC PANEL Routine 10/22/2024 9:05 AM CDT Essential hypertension LIPID PROFILE Routine 05/15/2024 8:17 AM CDT Mixed hyperlipidemia MAMMOGRAM Routine 11/03/2022 DEXA BONE DENSITY AXIAL SKELETON Routine 01/01/2021 9:21 AM CDT Screening for osteoporosis HEPATITIS C AB W/RFLX TO HCV RNA QN PCR Routine 03/08/2017 10:26 AM CDT from Last 3 Months or Most Recently Relevant to Health Maintenance Results * CT Neck Soft Tissue W Cont (02/14/2025 12:56 PM CDT) Anatomical Region Laterality Modality Head Computed Tomogra phy 02/15/2025 12:0 0 PM CDT Impressions 02/15/2025 12:08 PM CDT IMPRESSION: 1. Multiple small subcentimeter subcutaneous soft tissue nodules in the upper neck with the largest measuring 7 mm, likely representing subcutaneous lymph nodes. It is not clear whether these represent the reported palpable abnormalities. > Interpreting Provider: Nahun Painting MD on 02/15/2025 12:08 PM Narrative 02/15/2025 12:08 PM CDT PROCEDURE: CT NECK SOFT TISSUE W CONT, DATE/TIME OF EXAM: 02/14/2025 12:57 PM, LOCATION [facility] INDICATION: D48.9: Neoplasm of uncertain behavior ADDITIONAL CLINICAL INFORMATION: Ordering Provider Reason For Exam: evaluate posterior neck cysts Technologist Note: Additional: TECHNIQUE: CT of the neck was performed following the uneventful administration of intravenous contrast according to standard protocol. Contrast: IOPAMIDOL 76 % IV SOLN:100 mL COMPARISON: No prior study is available for comparison at the time of this dictation. FINDINGS: Multiple small subcentimeter subcutaneous soft tissue nodules in the upper neck with the largest measuring 7 mm, likely representing subcutaneous lymph nodes. It is not clear whether these represent the reported palpable abnormalities. Multiple small subcentimeter lymph nodes are noted in both sides of the neck with no evidence of cervical lymphadenopathy. The muscles of the neck appear normal. The cervical internal carotid arteries and internal jugular veins appear normal. Fascial planes are preserved and the deep spaces of the neck appear normal. The nasopharynx, oropharynx, hypopharynx and larynx appear normal. The visualized airway is patent. The visualized portions of the posterior fossa and brain appear normal. There is cervical severe degenerative disc and joint disease. The visualized orbits and paranasal sinuses appear normal. The thyroid gland is normal. The visible lung apices are clear. Procedure Note Nahun Painting MD - 02/15/2025 PROCEDURE: CT NECK SOFT TISSUE W CONT, DATE/TIME OF EXAM: 2:57 PM, LOCATION [facility] INDICATION: D48.9: Neoplasm of uncertain behavior ADDITIONAL CLINICAL INFORMATION: Ordering Provider Reason For Exam: evaluate posterior neck cysts Technologist Note: Additional: TECHNIQUE: CT of the neck was performed following the uneventful administration of intravenous contrast according to standard protocol. Contrast: IOPAMIDOL 76 % IV SOLN:100 mL COMPARISON: No prior study is available for comparison at the time ofthis dictation. FINDINGS: Multiple small subcentimeter subcutaneous soft tissue nodules in theupper neck with the largest measuring 7 mm, likely representing subcutaneous lymph nodes. It is not clear whether these represent the reportedpalpable abnormalities. Multiple small subcentimeter lymph nodes are noted in both sides of the neck with no evidence of cervical lymphadenopathy. The muscles of theneck appear normal. The cervical internal carotid arteries and internaljugular veins appear normal. Fascial planes are preserved and the deep spaces of the neck appear normal. The nasopharynx, oropharynx, hypopharynx andlarynx appear normal. The visualized airway is patent. The visualized portions of the posterior fossa and brain appear normal. There is cervical severe degenerative disc and joint disease. The visualized orbits and paranasal sinuses appear normal. The thyroid glandis normal. The visible lung apices are clear. IMPRESSION: 1. Multiple small subcentimeter subcutaneous soft tissue nodules in the upper neck with the largest measuring 7 mm, likely representing subcutaneous lymph nodes. It is not clear whether these represent the reported palpable abnormalities. > Interpreting Provider: Nahun Painting MD on 02/15/2025 12:08 PM us Jacky Marie MD CT ORDERABLES Final Result * (ABNORMAL) ISTAT CREATININE (02/14/2025 12:48 PM CDT) Pathologist [facility] Creatinine POCT 0.90 0.60 - 1.30 mg/dL 02/14/2025 12:48 PM CDT [facility] eGFR by CKD-EPI 69(L) >90 mL/min/1.7 3 m2 02/14/2025 12:48 PM CDT [facility] Sample iSTAT YAMIL 02/14/2025 12:48 PM CDT [facility] Blood BLOOD SPECIMEN / Unknown 02/14/2025 12:48 PM CDT 02/14/2025 12:48 PM CDT us Jacky Marie MD LAB - POINT OF CARE ORDERABLE S Final Result [facility] [address] [place] [address], [facility] [phone] * COMPREHENSIVE METABOLIC PANEL (10/22/2024 9:05 AM CDT) [facility] Glucose 94 65 - 99 mg/dL [facility] Comment: Fasting reference interval BUN 18 7 - 25 mg/dL [facility] Creatinine 0.72 0.50 - 1.05 mg/dL [facility] eGFR by Cystatin C 90 > OR = 60 mL/min/1. 73m2 [facility] BUN/Creatinine Ratio SEE NOTE: 6 - 22 (calc) [facility] Comment: Not Reported: BUN and Creatinine are within reference range. Sodium 138 135 - 146 mmol/L [facility] Potassium 4.2 3.5 - 5.3 mmol/L [facility] Chloride 103 98 - 110 mmol/L [facility] CO2 30 20 - 32 mmol/L [facility] Calcium 9.5 8.6 - 10.4 mg/dL [facility] Protein Total 6.7 6.1 - 8.1 g/dL [facility] Albumin 4.1 3.6 - 5.1 g/dL [facility] Globulin Total 2.6 1.9 - 3.7 g/dL (calc) [facility] Albumin/Globulin Ratio 1.6 1.0 - 2.5 (calc) [facility] Bilirubin Total 0.6 0.2 - 1.2 mg/dL [facility] Alkaline Phosphatase 99 37 - 153 U/L [facility] AST 21 10 - 35 U/L [facility] ALT 15 6 - 29 U/L [facility] Comment: Test Performed at: [facility] [id number] JONAS PALMA MD Blood BLOOD SPECIMEN / Unknown 10/22/2024 9:05 AM CDT 10/22/2024 9:07 AM CDT [facility] - CHEMISTRY ORDERABLES F inal Result Performing Organization Address [facility] de Phone Number [address] [address] * (ABNORMAL) LIPID PROFILE (05/15/2024 8:17 AM CDT) Cholesterol 176 <200 mg/dL [facility] HDL Cholesterol 55 > OR = 50 mg/dL [facility] Triglycerides 93 <150 mg/dL [facility] LDL Calculated 102(H) mg/dL (calc) [facility] Comment: Reference range: <100 Desirable range <100 mg/dL for primary prevention; <70 mg/dL for patients with CHD or diabetic patients with > or = 2 CHD risk factors. LDL-C is now calculated using the Joao calculation, which is a validated novel method providing better accuracy than the Friedewald equation in the estimation of LDL-C. Bay SS et al. RIVAS. 2013;310(19): 5828-8616 (http://education.MIOTtech.Subtech/faq/OJD396) CHOL/HDLC RATIO 3.2 <5.0 (calc) [facility] Non HDL Cholesterol 121 <130 mg/dL (calc) [facility] Comment: For patients with diabetes plus 1 major ASCVD risk factor, treating to a non-HDL-C goal of <100 mg/dL (LDL-C of <70 mg/dL) is considered a therapeutic option. REPORT COMMENT: FASTING:YES Test Performed at: [facility] [address] JONAS PALMA MD Blood BLOOD SPECIMEN / Unknown 05/15/2024 8:17 AM CDT 05/15/2024 8:18 AM CDT [facility] LAB - CHEMISTRY ORDERABLES F inal Result Performing Organization Address [facility] Co de Phone Number [address] [address] * MAMMOGRAM (11/03/2022) Anatomical Region Laterality Modality Other us Historical Provider MD SCANNING ONLY Final Res ult * BONE DENSITY AXIAL SKELETON(1OR MORE SITES)[id number] (01/01/2021 9:21 AM CDT) Anatomical Region Laterality Modality Other 01/01/2021 1:52 PM CDT Narrative 01/01/2021 6:02 PM CDT Examination: Dual energy x-ray absorptiometry of the lumbar spine and hip. Clinical Indication: Z13.820: Screening for osteoporosis Findings: Detailed data from the exam is sent separately to the ordering physician and is also available on [employer], the Radiology Department's computerized picture archive system. Patient's height 65 in; weight 172 lb. SUMMARY: No prior study available for comparison. BONE MINERAL DENSITY (BMD) lumbar spine (L1-4): Normal; T-score 0.5 BONE MINERAL DENSITY (BMD) left femoral neck: Normal; T-score -0.8 FRAX 10 year fracture risk was not reported because some T score of spine total, hip total, or femoral neck at or above -1.0. Definitions: T-score = Standard Deviation Normal: A value for bone mineral density(BMD) within 1 standard deviation of the young adult reference mean. (T-score above -1) Low bone mass(osteopenia): A value for bone mineral density(BMD) more than 1 standard deviation below the young adult mean, but less than 2.5 standard deviations below the young adult mean. ( T-score between -1 and -2.5) Osteoporosis: A value for bone mineral density 2.5 standard deviations or more below the young adult mean. ( T-score at or below -2.5) Severe osteoporosis: Osteoporosis + the presence of one or more fragility fractures. Please note that T-score values are important in determining increased risk for fractures. The T-score represents the standard deviation above or below the mean bone mineral density for young adults. With each -1 standard deviation decrease in bone mineral density, the risk for fracture doubles exponentially. A T-score of -1 will double the risk , and -2 will be 4 times the risk. As a rule of thumb, a T-score of -1 to -2.5 indicates increasing degrees of osteopenia. This report was approved by Michael Callahan on 01/01/2021 1:[address] ZENON Schultz M.D. have personally reviewed and interpreted this examination/study. This report was electronically signed by ZENON HERNANDEZ M.D. on 01/01/2021 6:02 PM . Procedure Note Zenon Hernandez MD - 01/01/2021 Examination: Dual energy x-ray absorptiometry of the lumbar spine andhip. Clinical Indication: Z13.820: Screening for osteoporosis Findings: Detailed data from the exam is sent separately to the ordering physician and is also available on [employer], the Radiology Department's computerized picture archive system. Patient's height 65 in; weight 172 lb. SUMMARY: No prior study available for comparison. BONE MINERAL DENSITY (BMD) lumbar spine (L1-4): Normal; T-score 0.5 BONE MINERAL DENSITY (BMD) left femoral neck: Normal; T-score -0.8 FRAX 10 year fracture risk was not reported because some T score ofspine total, hip total, or femoral neck at or above -1.0. Definitions: T-score = Standard Deviation Normal: A value for bone mineral density(BMD) within 1 standarddeviation of the young adult reference mean. (T-score above -1) Low bone mass(osteopenia): A value for bone mineral density(BMD) morethan 1 standard deviation below the young adult mean, but less than 2.5 standard deviations below the young adult mean. ( T-score between -1 and -2.5) Osteoporosis: A value for bone mineral density 2.5 standard deviationsor more below the young adult mean. ( T-score at or below -2.5) Severe osteoporosis: Osteoporosis + the presence of one or morefragility fractures. Please note that T-score values are important in determining increased risk for fractures. The T-score represents the standard deviation aboveor below the mean bone mineral density for young adults. With each -1 standard deviation decrease in bone mineral density, the risk forfracture doubles exponentially. A T-score of -1 will double the risk , and -2will be 4 times the risk. As a rule of thumb, a T-score of -1 to -2.5indicates increasing degrees of osteopenia. This report was approved by Michael Callahan on 01/01/2021 1:53 PM . I, Dr. ZENON HERNANDEZ M.D. have personally reviewed and interpreted this examination/study. This report was electronically signed by ZENON HERNANDEZ M.D. on01/01/2021 6:02 PM . us Tray Atkinson MD DEXA ORDERABLES Final Res ult * HEPATITIS C AB W/RFLX TO HCV RNA QN PCR (03/08/2017 10:26 AM CDT) Hepatitis C Antibody NON-REACTI VE NON-REACT [facility]) Signal/Cutoff 0.02 <1.00 [facility] ([facility]) Comment: REPORT COMMENT: FASTING:NO Test Performed at: [facility] [address] [place] [address] DL LOCKE DO,MPH 03/08/2017 10:2 6 AM CDT 03/08/2017 10:27 AM CDT us Kasia Lima MD LAB - CHEMISTRY ORDERABLES nal Result [facility] [id number] from Last 3 Months or Most Recently Relevant to Health Maintenance Insurance ANTHEM Care Teams Inspector Subassemblies Relationship Specialty Start Date End Date Paola Valdez DO [address] OF [facility] [place] [address] PCP - General Internal Medicine 04/24/23
--- OUTSIDE RECORDS SUMMARY | 2025-04-04 09:54 | XMS_ITS | Encounter Summary ---
Author Organization [facility] Address [address] [facility] [place] [address] Care Team Providers Care Metal Sprayer Production Name Role Phone Tray Atkinson MD Primary Care Provider [phone] Rivera Rand MD Unavailable Paola Valdez DO Primary Care Provider [phone] Reason for Visit * Reason Onset Date Comments MEDICATION REFILL 09/27/2019 Encounter Details Date Type Department Care Team (Late st Contact Info) Description 09/27/2019 Refill [facility] General Internal Medicine [address] [facility] 207 [place] [address] Abby Robledo MD [address] [facility] 122 [place] [address] MEDICATION REFILL Social History Tobacco Use Types Packs/Day Years Used Date Smoking Tobacco: Never Smokeless Tobacco: Never Alcohol Use Standard Drinks/Week Comments Yes 0 (1 standard drink = 0.6 oz pur e alcohol) 2 drink a month Comments No Sex and Gender Information Value Date Recorded Sex Assigned at Female 11/11/2024 11:33 AM CDT Legal Sex Female 5:21 PM TANK BUILDER Gender Identity Not on file Sexual Orientation Not on file documented as of this encounter Miscellaneous Notes * Telephone Encounter - Jasmin dEmondson RN - 09/27/2019 9:12 AM CDT Refill Request Colette Garcia ELVIS: 11.11.02 due: 6month f/u NOV scheduled: acute care 09/30/19 LRF: 11.4.19 Qty Disp: 30 # of refills: 0 Allergies: Allergies Allergen Reactions ??? Sulfa Drugs Rash After 7-8 days developed generalized erythematous rash on torso and thighs. No shortness of breath, ??? Meloxicam Rash, Other and Skin Reactions Fixed drug eruption. A couple of days after ingestion, developed itchy red bumps. Lesions resolve and re-occur at the exact same place when taken again. No shortness of breath. Tolerates Ibuprofen / Aleeve. , Pended Medication Order: Requested Prescriptions Pending Prescriptions Disp Refills ??? LORazepam (ATIVAN) 0.5 MG tablet 30 tablet 0 Sig: Take 1 tablet by mouth nightly as needed for Anxiety documented in this encounter Plan of Treatment Upcoming Encounters Date Type Department Care Team (Late st Contact Info) Description 05/05/2025 8:30 AM CDT Office Visit [facility] - Internal Med [address] [place] [address] Paola Valdez DO [address] [place] [address] [place] [address] 11/18/2025 1:00 PM CDT Office Visit [facility] - Dermatology [address] [place] [phone] Ashanti Fernandez MD [address] [place], [place] [address]T [place] [address] documented as of this encounter Visit Diagnoses Not on filedocumented in this encounter Additional Health Concerns Infection Onset Date Last Indicated Resolved Time COVID-19 Under Investigation 03/31/2021 03/31/2021 04/01/2021 10:07 PM CDT documented as of this encounter Care Teams Metal Sprayer Production Relationship Specialty Start Date End Date Tray Atkinson MD PCP - General 09/27/19 04/23/23 Paola Valdez DO [address] [place] [address] PCP - General Internal Medicine 04/24/23 Rivera Rand MD Resident - PCP Internal Medicine 05/17/22 04/23/23 documented as of this encounter
--- OUTSIDE RECORDS SUMMARY | 2025-04-04 09:54 | XMS_ITS | Encounter Summary ---
Author Organization [facility] Address [address] [facility] [place] [address] Care Team Providers Care Electrical Prospecting Operator Name Role Phone Paola Valdez DO Primary Care Provider [phone] Reason for Visit * Reason Onset Date Comments MEDICATION REFILL 02/12/2024 Encounter Details Date Type Department Care Team (Late st Contact Info) Description 02/12/2024 Refill [facility] Med [address] [place] [address], [facility] [place] [address] Paola Valdez DO [address] [place] [address] [place] [address] MEDICATION REFILL Social History Tobacco Use Types [...] CDT Legal Sex Female 5:21 PM MANAGER DEPARTMENT Gender Identity Not on file Sexual Orientation [...] Visit [facility] - Internal Med [address] [place] [phone] Paola Valdez DO [address] [place] [address] OF [facility] [place] [address] 11/18/2025 1:00 PM CDT Office Visit [facility] - Dermatology [address] [place] [address] [place] [address] Ashanti Fernandez MD [address] [place], [place] [address]T [place] [address] documented as of this encounter Goals Goal [...] disorder documented in this encounter Care Teams Electrical Prospecting Operator Relationship Specialty Start Date End Date Poala Valdez DO [address] [place] [address] PCP - General Internal Medicine 04/24/23 documented as of this encounter
--- OUTSIDE RECORDS SUMMARY | 2025-04-04 09:54 | XMS_ITS | Clinical Summary ---
Author Organization [facility] Address [address] [place] [address] [place] [address] Phone Care Team Providers Care Broadband Technician Name Role Phone Unavailable Primary Care Provider Unavailabl e Allergies Active Allergy Reactions Criticality Noted Date Comments Meloxicam Hives,Other (See Comments),Rash High 03/01/2016 Fixed drug eruption. A couple [...] and thighs. No shortness of breath Medications oseltamivir (TAMIFLU) 75 mg capsule Take 1 Capsule (75 mg) by mouth 2 times daily for 5 days 10 Capsule 06/11/2022 5:02 PM TANK CAR INSPECTOR 2 Active cetirizine (ZyrTEC) 10 mg tablet Take 10 mg by mouth daily. 4 Active cholecalciferol , Vitamin D3, 50 mcg (2,000 unit) Tablet Take 2,000 Units by mouth. Active glucosamine-cho ndroitin (ARTHX DS) 500-400 mg Capsule Take 1 Tablet by mouth daily. Active hydrocortisone butyrate (LOCOID) 0.1 % Cream Apply to affected area twice daily as needed for itch or rash. 30 days supply. 3 Active lisinopriL (PRINIVIL) 10 mg tablet Take 10 mg by mouth daily. 4 Active LORazepam (ATIVAN) 0.5 mg tablet Take 0.25-0.5 mg by mouth every 12 hours as needed. 4 Active omeprazole (PriLOSEC) 20 mg Capsule, Delayed Release(E.C.) Take 20 mg by mouth daily. 3 Active sertraline (ZOLOFT) 50 mg tablet Take 50 mg by mouth daily. 1 Active tretinoin (RETIN-A) 0.05 % Cream Pea sized amount to entire face at night.. 30 days supply. 3 Active triamcinolone acetonide (KENALOG) 0.1 % Ointment Apply to trunk and extremities twice daily as needed. 30 days supply. 3 Active multivit,iron,m inerals/lutein (CENTRUM SILVER ULTRA WOMEN'S ORAL) Take by mouth. Activ e cycloSPORINE (Restasis) 0.05 % emulsion 1 Drop 2 times daily. Active oxyCODONE (ROXICODONE) 5 mg tabletIndicatio ns:Post-op pain Take 1 Tablet (5 mg) by mouth every 4 hours as needed for Pain. Max Daily Amount: 6 Tablets 5 Tablet 01/11/2024 1:45 PM CDT 4 Active Active Problems Problem Noted Date Diagnosed Date Seborrheic dermatitis 12/17/2020 Hip abductor tendinitis, right 01/01/2020 Hip pain, chronic, right 01/01/2020 Primary osteoarthritis of both knees 04/10/2019 Low immunoglobulin level 04/10/2019 Chronic pain of both knees 04/10/2019 Hypogammaglobulinemia 03/22/2018 Sjogren's syndrome with keratoconjunctivitis sic ca 09/25/2017 SS-A antibody positive 03/13/2017 Rheumatoid factor positive 03/13/2017 Other specified abnormal immunological findings in serum 03/13/2017 ITA positive 03/13/2017 Gastroesophageal reflux disease without esophagi tis 07/06/2015 Essential hypertension 07/06/2015 Presbyopia 02/23/2015 History of basal cell cancer 10/11/2013 Generalized anxiety disorder 07/25/2011 Non-allergic rhinitis 07/25/2011 Family History Medical History Relation Name Comments Heart Disease Father Hypertension Father Osteoporosis Mother Relation Name Status Comments Father Mother Social History Tobacco Use Types Packs/Day Years Used Date Smoking Tobacco: Never Tobacco Cessation:Counseling Given: Not Answered Alcohol Use Standard Drinks/Week Comments Yes 0 (1 standard drink = 0.6 oz pur e alcohol) holiday Feeling Safe Answer Date Recorded Are you in a relationship wi th someone who hurts you emotionally and/or physically? Patient unable to answer 01/11/2024 Food Insecurity Answer Date Recorded Patient needs follow up regardin 11/07/2024 Transportation Needs Answer Date Record ed Patient needs follow up regardin 11/07/2024 Housing Stability Answer Date Recorded Social/Environmental Concerns No concerns Utility Needs Answer Date Recorded Patient needs follow up regardin 11/07/2024 Comments No Sex and Gender Information Value Date Recorded Sex Assigned at Female 06/19/2024 3:43 PM TANK CAR INSPECTOR Legal Sex Female 4:33 PM TANK CAR INSPECTOR Gender Identity Female 06/19/2024 3:43 PM TANK CAR INSPECTOR Sexual Orientation Not on file Last Filed Vital Signs Vital Sign Reading Time Taken Comments Blood Pressure 148/71 01/11/2024 12:40 PM CDT Pulse 57 01/11/2024 1:52 PM CDT Temperature 36.2 C (97.1 F) 01/11/2024 1:52 PM CDT Respiratory Rate 16 01/11/2024 1:52 PM CDT Oxygen Saturation 98% 01/11/2024 1:52 PM CDT Inhaled Oxygen Concentration - - Weight 73.8 kg (162 lb 9.6 oz) 01/11/2024 8:40 A M CDT Height 166.4 cm (5' 5.5) 01/11/2024 8:40 AM CDT Body Mass Index 26.65 01/11/2024 8:40 AM CDT Plan of Treatment Health Maintenance Due Date Last Done Comments BREAST CANCER SCREENING 1995 COLORECTAL SCREENING 2000 Colorectal Cancer Screening 2000 FIT-DNA Q 3 years 2000 FIT/FOBT Q 1 year 2000 Flex Sig/CT Colonography Q 5 years 2000 RSV VACCINE (60+ or ) (1 - Risk 60-74 years 1-dose series) 2015 PNEUMOCOCCAL VACCINE 50+ YEA RS (2 of 2 - PCV) 12/21/2021 12/21/2020 INFLUENZA VACCINE (#1) 2025 , 05/03/2022, 04/27/2021, Additional history exists OSTEOPOROSIS SCREENING 01/01/2026 01/01/2021, 2020 DTAP/TDAP/TD VACCINES (3 - T d or Tdap) 12/06/2028 12/06/2018, 12/29/2008 ZOSTER VACCINE Completed 07/24/2019, 100 07/2018, 04/25/2017 Insurance RX [employer] Commercial BCBS BLUE ACCESS/TRUE BLUE PPO Advance Directives For more information, please contact: [phone] * Full Code (Latest Code Status on File) Date Activated Date Inactivated Comments 01/11/2024 8:39 AM 01/11/2024 4:21 PM
--- OUTSIDE RECORDS SUMMARY | 2025-04-04 09:54 | XMS_ITS | Encounter Summary ---
Author Organization [facility] Address [address] [facility] [place] [address] Care Team Providers Care Public Health Aide Name Role Phone Kasia Lima MD Primary Care Provider [phone] Abby Robledo MD Primary Care Provider Tray Atkinson MD Primary Care Provider [phone] Rivera Rand MD Unavailable Paola Valdez DO Primary Care Provider [phone] Encounter Details Date Type Department Care Team (Late Contact Info) Description 01/16/2018 Telephone [facility] General Internal Medicine [address] [facility] 207 [place], [place] [id number] Kasia Lima MD [address] [place] [address] Social History Tobacco Use Types Packs/Day Years Used Date Smoking Tobacco: Never Smokeless Tobacco: Never Alcohol Use Standard Drinks/Week Comments Yes 0 (1 standard drink = 0.6 oz pur e alcohol) Comments No Sex and Gender Information Value Date Recorded Sex Assigned at Female 11/11/2024 11:33 AM CDT Legal Sex Female 5:21 PM CLINICAL REVIEW NURSE Gender Identity Not on file Sexual Orientation Not on file documented as of this encounter Plan of Treatment Upcoming Encounters Date Type Department Care Team (Late Contact Info) Description 05/05/2025 8:30 AM CDT Office Visit [facility] - Internal Med [address] [place] [address] [place] [address] Paola Valdez DO [address] [facility] 2L DIV OF [place] [address] 11/18/2025 1:00 PM CDT Office Visit [facility] - Dermatology [address] [place] [address], [place] [phone] Ashanti Fernandez MD [address] [place], [place] [address]T [place] [address] documented as of this encounter Visit Diagnoses Not on filedocumented in this encounter Additional Health Concerns Infection Onset Date Last Indicated Resolved Time COVID-19 Under Investigation 03/31/2021 03/31/2021 04/01/2021 10:07 PM CDT documented as of this encounter Care Teams Public Health Aide Relationship Specialty Start Date End Date Kasia Lima MD PCP - General 03/07/16 02/04/18 Abby Robledo MD PCP - General 02/05/18 09/26/19 Tray Atkinson MD PCP - General 09/27/19 04/23/23 Paola Valdez DO [address] [place] [address] 2L DIV [place] [address] PCP - General Internal Medicine 04/24/23 Rivera Rand MD Resident - PCP Internal Medicine 05/17/22 04/23/23 documented as of this encounter
--- OUTSIDE RECORDS SUMMARY | 2025-04-04 09:54 | XMS_ITS | Encounter Summary ---
Author Organization [facility] Address [address] [place] [address] Care Team Providers Care Warp Tying Machine Knotter Name Role Phone Paola Valdez DO Primary Care Provider [phone] Reason for Visit * Reason Onset Date Comments MEDICATION REFILL 10/06/2023 Encounter Details Date Type Department Care Team (Late st Contact Info) Description 10/06/2023 Refill [facility] Internal Med [address] [place] [address], [facility] [place] [address] Paola Valdez DO [address] [place] [address] [place] [address] MEDICATION REFILL Social History Tobacco Use Types [...] AM CDT Legal Sex Female 5: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 2l 05/11/22 Office Visit Lolis Colbert APRN-CNP [facility] 2l Showing recent visits within past 540 days with a meds authorizing provider and meeting all other requirements Future Appointments Date Type Provider Dept 11/06/23 Appointment Paola Valdez DO [facility] 2l Showing future appointments within next 150 days with a meds authorizing provider and meeting all other requirements Last Refill: 05.30.23 Allergies: Allergies Allergen Reactions ??? Sulfa Drugs [...] MG tablet 40 tablet 0 Sig: Take 0.5 (one-half) tablet to 1 (one) tablet by mouth every 12 hours as needed for Anxiety or Insomnia documented in this encounter Plan of Treatment Upcoming Encounters Date Type Department Care Team (Late st Contact Info) Description 05/05/2025 8:30 AM CDT Office Visit [facility] - Internal Med [address] [place] [address] Paola Valdez DO [address] [place] [address] [place] [address] 11/18/2025 1:00 PM CDT Office Visit [facility] - Dermatology [address] [place] [phone] Ashanti Fernandez MD [address] [place], [place] [address]T [place] [address] documented as of this encounter Goals Goal [...] type documented in this encounter Care Teams Warp Tying Machine Knotter Relationship Specialty Start Date End Date Paola Valdez DO [address] [place] [address] PCP - General Internal Medicine 04/24/23 documented as of this encounter
--- OUTSIDE RECORDS SUMMARY | 2025-04-04 09:54 | XMS_ITS | Encounter Summary ---
Author Organization [facility] Address [address] [facility] [place] [address] Care Team Providers Care Machine Loader Name Role Phone José Miguel Paola Primary Care Provider [phone] Reason for Visit * Reason Onset Date Comments MEDICATION REFILL 10/06/2023 Encounter Details Date Type Department Care Team (Late st Contact Info) Description 10/06/2023 Refill [facility] Med [facility] [place] [phone] PersonLolis, SHEET METAL APPRENTICE-[address] [address] MEDICATION REFILL Social History Tobacco Use Types [...] AM CDT Legal Sex Female 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 Gender Identity Not on file Sexual Orientation [...] Encounter - Nisa Lewis LPN - 10/06/2023 2:10 PM CDT Refill Request Colette Garcia Recent Visits Date Type Provider Dept 04/24/23 Office Visit Paola Valdez DO [facility] 2l 11/07/22 Office Visit Rivera Rand MD [facility] 2l 07/20/22 Office Visit Rivera Rand MD [facility] 2l 05/11/22 Office Visit Lolis Colbert APRN-CNP [facility] 2l Showing recent visits within past 540 days with a meds authorizing provider and meeting all other requirements Future Appointments Date Type Provider Dept 11/06/23 Appointment Paola Valdez DO [facility] 2l Showing future appointments within next 150 days with a meds authorizing provider and meeting all other requirements Last Refill: 05.11.22 Allergies: Allergies Allergen Reactions ??? Sulfa Drugs [...] Requested Prescriptions Pending Prescriptions Disp Refills ??? lisinopril (Prinivil; Zestril) 10 MG tablet 90 tablet 4 Sig: Take 1 (one) tablet by mouth once daily documented in this encounter Plan of Treatment Upcoming Encounters Date Type Department Care Team (Late st Contact Info) Description 05/05/2025 8:30 AM CDT Office Visit [facility] - Internal Med [address] [place] [phone] Paola Valdez DO [address] [place] [address] 2L DIV OF [facility] [place] [address] 11/18/2025 1:00 PM CDT Office Visit [facility] - Dermatology [address] [place] [phone] Ashanti Fernandez MD [address] [place], [place] [address]T [place] [address] documented as of this encounter Goals Goal [...] as of this encounter Visit Diagnoses Diagnosis Essential hypertension documented in this encounter Care Teams Machine Loader Relationship Specialty Start Date End Date Paola Valdez DO [address] [place] [address] 2L [place] [address] PCP - General Internal Medicine 04/24/23 documented as of this encounter
--- OUTSIDE RECORDS SUMMARY | 2025-04-04 09:54 | XMS_ITS | Encounter Summary ---
Author Organization [facility] Address [address] [facility] [place] [address] Care Team Providers Care Anthropology Department Chair Name Role Phone Abby Robledo MD Primary Care Provider Tray Atkinson MD Primary Care Provider [phone] Rivera Rand MD Unavailable Paola Valdez DO Primary Care Provider [phone] Reason for Visit * Reason Onset Date Comments Vaccine Question 08/09/2019 Encounter Details Date Type Department Care Team (Late st Contact Info) Description 08/09/2019 Telephone [facility] Internal [facility] [address] [facility] 206 [place], [place] [phone] Abby Robledo MD [address] [facility] 122 [place] [address] Vaccine Question Social History Tobacco Use Types Packs/Day Years Used Date Smoking Tobacco: Never Smokeless Tobacco: Never Alcohol Use Standard Drinks/Week Comments Yes 0 (1 standard drink = 0.6 oz pur e alcohol) 2 drink a month Comments No Sex and Gender Information Value Date Recorded Sex Assigned at Female 11/11/2024 11:33 AM CDT Legal Sex Female 5:21 PM ARCHITECT Gender Identity Not on file Sexual Orientation Not on file documented as of this encounter Miscellaneous Notes * Telephone Encounter - Nisa Lewis LPN - 08/09/2019 2:35 PM ARCHITECT Chart has been updated. ITECT * Telephone Encounter - Mable Edmonds RN - 08/09/2019 12:56 PM CST Patient attached shingles shot update to [employer] message Please advise if records were attached Please call patient [phone] [phone] ITECT documented in this encounter Plan of Treatment Upcoming Encounters Date Type Department Care Team (Late st Contact Info) Description 05/05/2025 8:30 AM CDT Office Visit [facility] - Internal Med [address] [place] [phone] Paola Valdez DO [address] [place] [address] OF [facility] [place] [address] 11/18/2025 1:00 PM CDT [facility] [address] [place] [address], [place] [phone] Ashanti Fernandez MD [address] [place], [place] [address]T [place] [phone] documented as of this encounter Visit Diagnoses Not on filedocumented in this encounter Additional Health Concerns Infection Onset Date Last Indicated Resolved Time COVID-19 Under Investigation 03/31/2021 03/31/2021 04/01/2021 10:07 PM CDT documented as of this encounter Care Teams Anthropology Department Chair Relationship Specialty Start Date End Date Abby Robledo MD PCP - General 02/05/18 09/26/19 Tray Atkinson MD PCP - General 09/27/19 04/23/23 Paola Valdez DO [address] OF [facility] [place] [address] PCP - General Internal Medicine 04/24/23 Rivera Rand MD Resident - PCP Internal Medicine 05/17/22 04/23/23 documented as of this encounter
== END 2025-04-04 09:48 | disposition home or self-care (01) ==
LOC: ANHFOHIMG 09:51
DX: Z12.31 Encounter for screening mammogram for malignant neoplasm of breast (principal)
CPT/HCPCS: 77063; 77067